=== PATIENT | male | born 1965 | race Caucasian/White ===

== ENCOUNTER → 2019-08-07 | Outpatient (CLI) | payer BC | END | disposition home or self-care (01) | LOC: RAH 09:04 | PROVIDERS: ATTEND Family Medicine | DX: M50.222 Other cervical disc displacement at C5-C6 level (principal); M50.322 Other cervical disc degeneration at C5-C6 level | CPT/HCPCS: 72141 ==

== ENCOUNTER → 2020-08-13 | Outpatient (CLI) | payer BC | END | disposition home or self-care (01) | LOC: SHCH 13:42 | PROVIDERS: ATTEND Internal Medicine Cardiovascular Disease | DX: I65.23 Occlusion and stenosis of bilateral carotid arteries (principal); I25.10 Atherosclerotic heart disease of native coronary artery without angina pectoris | CPT/HCPCS: 93880 ==

== ENCOUNTER → 2020-12-30 | Outpatient (CLI) | payer BC, SELFPAY | END | disposition home or self-care (01) | LOC: RAH 14:05 | PROVIDERS: ATTEND Orthopaedic Surgery | DX: M25.462 Effusion, left knee (principal); M22.42 Chondromalacia patellae, left knee; M17.12 Unilateral primary osteoarthritis, left knee; M25.552 Pain in left hip; M25.551 Pain in right hip | CPT/HCPCS: 72195; 73721 ==

== ENCOUNTER → 2021-02-23 | Outpatient (CLI) | payer BC | END | disposition home or self-care (01) | LOC: RAH 14:15 | PROVIDERS: ATTEND Orthopaedic Surgery | DX: S83.241A Other tear of medial meniscus, current injury, right knee, initial encounter (principal); X58.XXXA Exposure to other specified factors, initial encounter; Y93.89 Activity, other specified; Y92.89 Other specified places as the place of occurrence of the external cause; Y99.8 Other external cause status | CPT/HCPCS: 73721 ==

== ENCOUNTER → 2021-10-20 | Outpatient (CLI) | payer BC | END | disposition home or self-care (01) | LOC: SHCH 10:26 | PROVIDERS: ATTEND Internal Medicine Cardiovascular Disease | DX: G45.9 Transient cerebral ischemic attack, unspecified (principal); H53.2 Diplopia | CPT/HCPCS: 93880 ==

== ENCOUNTER → 2023-08-01 | Outpatient (CLI) | payer BC | END | disposition home or self-care (01) | LOC: SHCH 14:57 | PROVIDERS: ATTEND Internal Medicine Cardiovascular Disease | DX: I48.0 Paroxysmal atrial fibrillation (principal) | CPT/HCPCS: 93306 ==

== ENCOUNTER → 2024-03-28 | Outpatient (CLI) | payer BC | END | disposition home or self-care (01) | LOC: RAH 08:49 | PROVIDERS: ATTEND Internal Medicine Gastroenterology | DX: K80.20 Calculus of gallbladder without cholecystitis without obstruction (principal); K76.0 Fatty (change of) liver, not elsewhere classified; R16.0 Hepatomegaly, not elsewhere classified; R10.9 Unspecified abdominal pain; R11.2 Nausea with vomiting, unspecified | CPT/HCPCS: 74240; 76700 ==

== ENCOUNTER → 2024-09-15 | Outpatient (CLI) | payer BC ==
[2024-09-15 13:13] LABS: CHOLESTEROL 98 mg/dL (<200); HDL CHOLESTEROL 58 mg/dL (29-71); LDL DIRECT 26 mg/dL (0-99); TRIGLYCERIDES 112 mg/dL (30-200)
== END | disposition home or self-care (01) ==
LOC: LAB 08:43
PROVIDERS: ATTEND Internal Medicine Cardiovascular Disease
DX: E78.5 Hyperlipidemia, unspecified (principal)
CPT/HCPCS: 36415; 80061

== ENCOUNTER 2025-10-16 15:37 | Emergency (ER) | payer BC ==
[~2025-10-16] VITALS: Ht 182.9 cm; Wt 95.3 kg
--- NOTE | 2025-10-16 16:04 | ERN ---
ED Note History of Present Illness Stated Complaint: WEAKNESS Chief Complaint: Weakness Time Seen by MD: 15:44 Time Seen by Midlevel: 15:44 Dictation: Mr. Howard is a 60-year-old gentleman with history of atrial fibrillation, chronic anticoagulation (Xarelto), CVA, hyperlipidemia, hypertension, and GERD who presented to the emergency department this afternoon for evaluation of general body weakness. Patient reports fatigue, general weakness, and intermittent dizziness since last night. He states I feel drained . He feels like he may be in AFib. He went to [facility] so they could review his loop recorder but they had left for the day so he came to the emergency department. He states he is status post ablation on 09/10 (Dr. Stiles). He denies fever, chills, shortness of breath, cough, chest pain, palpitations, edema, abdominal pain, nausea, vomiting, hematemesis, constipation, diarrhea, melena, hematochezia, dysuria, headache, dizziness, or focal weakness/paresthesia Allergies: Uncoded Allergies: STATINS (Allergy, Unknown, 09/08/25) Home Meds Active Scripts Sucralfate (Sucralfate) 1 Gram Tablet, 1 TAB PO QID for 15 Days, #60 TAB 0 Refills MUST DISSOLVE IN WATER DO NOT CRUSH Prov:ABBY STILES MD 09/10/25 Reported Medications Tirzepatide (Mounjaro) 2.5 Mg/0.5 Ml Pen.injctr, 2.5 MG SQ Sundays09/08/25 Vitamin E Mixed (Vitamin E) 400 Unit Capsule, 400 UNIT PO DAILY, CAP 09/08/25 [Mvi] No Conflict Check, 1 TAB PO DAILY 09/08/25 [Coq10] No Conflict Check, 1 TAB PO DAILY 09/08/25 [Vitamin B12] No Conflict Check, 1000 MCG SL DAILY 09/08/25 Cholecalciferol (Vitamin D3) (Vitamin D3) 50 Mcg (2000 Unit) Tab.chew, 50 MCG PO DAILY, TAB.CHEW 09/08/25 Zinc Sulfate (Zinc) 50 Mg Zinc (220 Mg) Tablet, 50 MG PO DAILY, TAB 09/08/25 Niacin (Niacin) 500 Mg Capsule.er, 500 MG PO DAILY, CAP 09/08/25 Ondansetron (Ondansetron Odt) 4 Mg Tab.rapdis, 4 MG PO AD PRN for NAUSEA/VOMITING, TAB 09/08/25 Losartan Potassium (Losartan Potassium) 100 Mg Tablet, 100 MG PO HS, TAB 09/08/25 Evolocumab (Repatha Syringe) 140 Mg/Ml Syringe, 140 MG SQ G0YSTDA, SYRINGE 09/08/25 Icosapent Ethyl (Icosapent Ethyl) 1 Gram Capsule, 2 GM PO BID, CAP 09/08/25 Clopidogrel Bisulfate (Clopidogrel) 75 Mg Tablet, 75 MG PO DAILY, TAB 09/08/25 Gemfibrozil (Gemfibrozil) 600 Mg Tablet, 600 MG PO BID, TAB 09/08/25 Omeprazole (Omeprazole) 40 Mg Capsule.dr, 40 MG PO AM, CAP 09/08/25 Rivaroxaban (Xarelto) 20 Mg Tablet, 20 MG PO AM, TAB 09/08/25 Metoprolol Succinate (Metoprolol Succinate) 25 Mg Tab.er.24h, 25 MG PO BID, TAB 09/08/25 Past Medical History Past Medical History: A-Fib, CVA, High Cholesterol, Hypertension Surgical History: Other Surgical History Other: LOOP RECORDER Social History: Lives with family RN Note Reviewed/Agreed w/PFSH: Yes Review of System Dictation REVIEW OF SYSTEMS: CONSTITUTIONAL: Patient denies fevers, chills, sweats and weight changes. Re ports fatigue and general weakness. States I feel drain . EYES: Patient denies any visual symptoms. EARS, NOSE, AND THROAT: No difficulties with hearing. No symptoms of rhinitis or sore throat. CARDIOVASCULAR: Patient denies chest pains, palpitations, orthopnea and paroxysmal nocturnal dyspnea. Denies rapid heart rate/tachycardia . States that he is status post ablation on 09/10. States he is concerned he may be in and out of atrial fibrillation. RESPIRATORY: No dyspnea on exertion, no wheezing or cough. GI: No nausea, vomiting, diarrhea, constipation, abdominal pain, hematochezia or melena. : No urinary hesitancy or dribbling. No nocturia or urinary frequency. No abnormal urethral discharge. MUSCULOSKELETAL: No myalgias or arthralgias. NEUROLOGIC: No chronic headaches, no seizures. Patient denies numbness, tingling or weakness. PSYCHIATRIC: Patient denies problems with mood disturbance. No problems with anxiety. ENDOCRINE: No excessive urination or excessive thirst. DERMATOLOGIC: Patient denies any rashes or skin changes. Initial Vital Sign VS Vital Signs Date Time Temp Pulse Resp B/P (MAP) Pulse Ox O2 Delivery O2 Flow Rate FiO2 10/16/25 15:44 71 18 106/69 98 Room Air 0 Physical Exam Dictation Vital signs: Reviewed. Afebrile Constitutional: No acute distress. Non-toxic appearing. Accompanied by significant other Head/Face: Normocephalic, atraumatic. Eyes: Periorbital areas with no swelling, redness, or edema. Lids and lashes are normal. Conjunctival injection is absent. Sclera anicteric. Pupils equal, round, reactive to light. ENT: Pinnas intact and no signs of trauma or erythema. Ear canals clear and no discharge. TMs no erythema. No nasal discharge or bleeding noted. Oropharynx with no exudate, redness, swelling, masses, exudates, or evidence of obstruction. Uvula midline. Mucous membranes moist. Neck: Trachea midline, no masses palpated, and no cervical lymphadenopathy. No swelling. Supple, full range of motion. Chest/Axilla: No tenderness, no crepitus, no paradoxical movement, no retract ions. Cardiovascular: Regular rate, regular rhythm, no murmur, no gallops. Symmetric pulses. No peripheral edema. Twelve lead EKG reflects a sinus rhythm without ST-elevation or depression. Denies chest pain Respiratory: Respirations even and unlabored. Lung sounds clear; no wheezes, rales or rhonchi. Room air SpO2 97% Gastrointestinal: Inspection is normal. No distention is appreciated. Bowel sounds are normal. No mass or organomegaly . There is no tenderness. No rebound. No rigidity. No voluntary or involuntary guarding. No Cason's sign. Neurological: Normal speech, gross motor function intact, gross sensory function intact. No focal weakness/Paresthesia. Musculoskeletal/Extremities: All extremities have full range of motion, no pain or tenderness on palpation. Symmetric pulses. Integumentary: Intact. Skin is normal color, warm and dry. Cap refill less than 3 seconds. Results (Laboratory/Radiology) Laboratory/Radiology Laboratory Tests Test 10/16/25 15:59 White Blood Count 8.5 K/uL (4.8-10.8) Red Blood Count 3.85 MIL/uL (4.50-6.20) L Hemoglobin 12.3 g/dL (14.0-18.0) L Hematocrit 37.2 % (42-54) L Mean Corpuscular Volume 96.6 fL (79-99) Mean Corpuscular Hemoglobin 31.9 pg (27.0-33.0) Mean Corpuscular Hemoglobin Concent 33.1 g/dL (32.0-36.0) Red Cell Distribution Width 13.8 % (11.0-15.5) Platelet Count 363 K/uL (130-400) Mean Platelet Volume 9.2 fL (7.5-10.5) Immature Granulocyte % (Auto) 0.5 % (0-1) Neutrophils (%) (Auto) 55.6 % (40.0-77.0) Lymphocytes (%) (Auto) 29.2 % (21.0-51.0) Monocytes (%) (Auto) 10.3 % (3.0-13.0) Eosinophils (%) (Auto) 3.8 % (0.0-8.0) Basophils (%) (Auto) 0.6 % (0.0-5.0) Neutrophils # (Auto) 4.7 K/uL (1.8-7.7) Lymphocytes # (Auto) 2.5 K/uL (1.0-4.8) Monocytes # (Auto) 0.9 K/uL (0.1-1.0) Eosinophils # (Auto) 0.32 K/uL (0.00-0.70) Basophils # (Auto) 0.05 K/uL (0.00-0.20) Absolute Immature Granulocyte (auto 0.04 K/uL (0-1) Nucleated Red Blood Cells 0.0 % (0.0-0.19) Sodium Level 143 mmol/L (136-145) Potassium Level 4.4 mmol/L (3.5-5.1) Chloride Level 105 mmol/L (101-111) Carbon Dioxide Level 31 mmol/L (21-32) Blood Urea Nitrogen 13 mg/dL (7-18) Creatinine 1.3 mg/dL (0.5-1.3) Glomerular Filtration Rate Calc 63 mL/min (>90) Random Glucose 101 mg/dL (70-105) Total Calcium 9.5 mg/dL (8.5-10.1) Magnesium Level 2.10 mg/dL (1.80-2.40) Troponin I High Sensitivity 10 ng/L (4-75) B-Type Natriuretic Peptide 97 pg/mL (0-100) Labs Reviewed?: Yes EKG Comment: EKG Interpretation: Time Reviewed: 1345 Ventricular rate: 67 bpm NH Interval: 234 ms QRS duration: [address] segment elevation or depression. Clinical impression: Sinus rhythm EKG Reviewed and interpreted by Dr. Paris Heredia ED Course ED Course Orders Procedure Category Date Status Time 12 Lead Ekg Tracing- EKG 10/16/25 Logged Technical 15:49 Cbc With Differential LAB 10/16/25 Complete 15:49 Basic Metabolic Panel LAB 10/16/25 Complete 15:49 Troponin I High LAB 10/16/25 Complete Sensitivity 15:49 B-Type Natriuretic LAB 10/16/25 Complete Peptide 15:49 Magnesium LAB 10/16/25 Complete 15:49 Vital Signs Date Time Temp Pulse Resp B/P (MAP) Pulse Ox O2 Delivery O2 Flow Rate FiO2 10/16/25 15:44 71 18 106/69 98 Room Air 0 Uneventful ED course. Vital signs are stable; afebrile and normotensive with room air SpO2 98%. Twelve lead EKG reflects a sinus rhythm without ST- elevation. Laboratory findings as noted below. No elevation of WBCs. H&H are 12.3/37.2. GFR 63. No electrolyte derangement. Normal magnesium. Troponin and BNP are not elevated. There was evaluated for fatigue and lightheadedness. EKG shows a sinus rhythm, labs reassuring, and no evidence of acute cardiopulmonary pathology. Stable for discharge with cardiology follow up and strict return precautions reviewed. Patient verbalizes understanding. Medical Decision Making MDM MDM: Differential diagnosis: Atrial fibrillation with rapid ventricular response, dehydration, anemia, medication related affects (beta-belkys), post ablation symptoms, ACS, CHF Rationale: Tests considered and ordered secondary to shared decision making include: EKG lab Previous outside records reviewed: Old ER visits. Risk of complication and/or morbidity or mortality of patient management: None Medications-Per medication reconciliation Need for hospitalization: Patient does not meet criteria for hospitalization. Need for emergency major/minor surgery: No There are no social concerns with this patient. Prescription drug management: Continue home medications. Prescriptions will include symptomatic care Patient's prior external medical records from other ER visits were reviewed by me as indicated. Prior testing and results from previous visits were reviewed. Prior tests were taken into account with medical decision making and resource utilization, independent historian/historians were used to obtain complete medical history. I independently interpreted the test that were performed, results were reviewed by me and considered findings on radiology if ordered. Medical management and examination interpretation discussions were had by me with other qualified healthcare professionals as indicated for the patient's care. DX & DISP Disposition: Discharge Departure Impression: Primary Impression: Fatigue/lightheadedness Additional Impressions: History fibrillation, status post ablation, Electrocardiogram showing normal sinus rhythm, Normal sinus rhythm Condition: Stable Additional Instructions: Your EKG: Normal sinus rhythm. Laboratory studies: Troponin negative, BNP normal, electrolytes and magnesium with no normal limits, hemoglobin is stable, and kidney function is stable. There was no evidence of atrial fibrillation, heart attack, heart failure, electrolyte abnormality, or dangerous arrhythmia at this time. Continue all home medications as prescribed including your Xarelto and metoprolol. Resume normal activities as tolerated. Change positions slowly (sit up and stand gradually, maintain good hydration. Avoid excessive caffeine or alcohol. Contact your lawyer criminal in 1-2 days. Informed them of today's symptoms and ED visit. They may review data from your loop recorder. Keep all scheduled cardiology appointments, fatigue or lightheadedness may occur after a blation or as a medication effect. Symptoms should improve with rest and hydration. Loop recorder provides ongoing rhythm monitoring. Return to the emergency department immediately if you have: Chest pain/pressure, shortness of breath, fainting/near fainting, rapid/irregular heartbeat, new/worsening dizziness. Stroke symptoms (weakness, numbness, speech, or vision changes). An y bleeding or black stools while on Xarelto. Your evaluation today was reassuring. No acute cardiac problem was identified. Outpatient Cardiology follow up is appropriate. Referrals: ROB AVILA MD (PCP) JO CALVERT MD Time of Disposition: 16:54 IBIS DAVID Oct 16, 2025 16:04
[2025-10-16 16:07] LABS: IMMATURE GRANULOCYTE ABSOLUTE 0.04 K/uL (0-1); NUCLEATED RED BLOOD CELLS 0.0 % (0.0-0.19); PLATELET COUNT (AUTO) 363 K/uL (130-400); RED BLOOD CELL COUNT(AUTO) 3.85 MIL/uL (4.50-6.20); RED CELL DISTRIBUTION WIDTH 13.8 % (11.0-15.5); WHITE BLOOD COUNT (AUTO) 8.5 K/uL (4.8-10.8)
[2025-10-16 16:17] LABS: CREATININE 1.3 mg/dL (0.5-1.3); GLOMERULAR FILTR. RATE CALC 63.0 mL/min (>90); GLUCOSE,RANDOM 101.0 mg/dL (70-105); SODIUM SERUM 143.0 mmol/L (136-145); UREA NITROGEN, BLOOD 13.0 mg/dL (7-18)
[2025-10-16 17:05] VITALS: BP 106/69; PULSE 71; RESP 18; O2SAT 98
--- NOTE | 2025-10-16 17:05 | NUR ---
ASSUMED CARE OF PATIENT, RECEIVED REPORT FROM STAS CHOI RN.
--- NOTE | 2025-10-17 13:07 | EKG ---
[facility] Test Date: 2025-10-16 Test Time: 15:43:21 Pat Name: MARILEE AROCS Department: ED Room: Gender: Rag Room Supervisor: [id number] : 1965 Requested By: IBIS DAVID Order Number: [id number] Reading MD: Cortez Campbell Measurements Intervals [place] Rate: 67 P: 73 IN: 234 QRS: 46 QRSD: 98 T: 62 QT: 384 QTc: 405 Interpretive Statements Sinus rhythm Prolonged IN interval Compared to ECG 09/08/2025 11:39:05 No significant changes Electronically Signed On 10-18-2025 09:25:49 REAL ESTATE ACQUISITION ANALYST by Cortez Campbell Please click the below link to view image of tracing.
== END 2025-10-16 17:20 | disposition home or self-care (01) ==
LOC: EDH 15:37
DX: R42 Dizziness and giddiness (principal); R53.83 Other fatigue; I48.91 Unspecified atrial fibrillation; E78.00 Pure hypercholesterolemia, unspecified; I10 Essential (primary) hypertension; Z79.02 Long term (current) use of antithrombotics/antiplatelets; Z79.899 Other long term (current) drug therapy; Z86.73 Personal history of transient ischemic attack (TIA), and cerebral infarction without residual deficits; Z88.8 Allergy status to other drugs, medicaments and biological substances; Z98.890 Other specified postprocedural states
CPT/HCPCS: 36415; 80048; 83735; 83880; 84484; 85025; 93005; 99284

== ENCOUNTER 2025-10-22 06:03 | Day surgery (SDC) | payer BC ==
[2025-10-20 13:09] VITALS: BP 110/72; PULSE 72; RESP 18; TEMP 98.4
[2025-10-20 13:14] LABS: IMMATURE GRANULOCYTE ABSOLUTE 0.03 K/uL (0-1); NUCLEATED RED BLOOD CELLS 0.0 % (0.0-0.19); PLATELET COUNT (AUTO) 508 K/uL (130-400); RED BLOOD CELL COUNT(AUTO) 4.19 MIL/uL (4.50-6.20); RED CELL DISTRIBUTION WIDTH 14.2 % (11.0-15.5); WHITE BLOOD COUNT (AUTO) 7.4 K/uL (4.8-10.8)
[2025-10-20 13:22] LABS: INR 1.25 (0.85-1.15)
[2025-10-20 13:23] LABS: CREATININE 1.2 mg/dL (0.5-1.3); GLOMERULAR FILTR. RATE CALC 69.0 mL/min (>90); GLUCOSE,RANDOM 93.0 mg/dL (70-105); SODIUM SERUM 138.0 mmol/L (136-145); UREA NITROGEN, BLOOD 14.0 mg/dL (7-18)
--- NOTE | 2025-10-20 13:24 | EKG ---
[facility] Test Date: 2025-10-20 Test Time: 12:59:31 Pat Name: MARILEE ARCOS Department: [facility] Room: Gender: Clean Energy Policy Analyst: [id number] : 1965 Requested By: ABBY STILES Order Number: [id number] Reading MD: Can Martinez Measurements Intervals [place] Rate: 72 P: 56 OR: 231 QRS: 2 QRSD: 97 T: 37 QT: 373 QTc: 408 Interpretive Statements Sinus rhythm Prolonged OR interval Compared to ECG 10/16/2025 15:43:21 No significant changes Electronically Signed On 10-20-2025 23:53:33 [address] OPERATIONS CLERK by Can Martinez Please click the below link to view image of tracing.
[~2025-10-22] VITALS: Ht 182.9 cm; Wt 99.3 kg
[~2025-10-22 06:03] MED LIST: BACITRACIN 1 EACH PACKET TP ONE; CHOL200079 PO; CLOP75TA32 PO; COQ10 PO; EVOL140S2 SQ; GEMF600T89 PO; ICOS1CAP2 PO; IODIXANOL 320 MG/ML 100 ML VIAL ONE; LIDOCAINE HCL 1% MDV 50ML VIAL ONE; LOSA100T59 PO; METO-408 PO; MIDAZOLAM HCL 1 MG/ML 2ML VIAL ONE; MVI PO; NIAC500C9 PO; OMEP40CA21 PO; ONDA-243 PO; RIVA20TA PO; SODIUM BICARB 50MEQ 50ML VIAL 50 ML ONE; TIRZ2.5P SQ; VITA-348 PO; VITAMIN B12 SL; ZINC220T4 PO
[2025-10-22 06:16] VITALS: BP 115/75; PULSE 77; RESP 18; TEMP 98
[2025-10-22] MEDS: 0.9%NACL 1000ML 1,000 ML IV SCH (06:40)
[2025-10-22] MEDS ORDERED: LIDOCAINE HCL 400MG/20ML VIAL ONE (07:33)
[2025-10-22 08:55] VITALS: BP 118/73; PULSE 76; RESP 16; TEMP 96.9
--- NOTE | 2025-10-22 08:55 | NUR ---
DRESSING: DRESSING TO MID CHEST AREA DRY/INTACT WITH NO ACTIVE BLEEDING PRESENT. NO REDNESS/SWELLING NOTED TO SURROUNDING AREA.
[2025-10-22 09:10] VITALS: BP 119/66; PULSE 73; RESP 16; TEMP 96.9
--- NOTE | 2025-10-22 09:10 | NUR ---
DRESSING: DRESSING TO MID CHEST AREA REMAINED DRY/INTACT WITH NOACTIVE BLEEDING NOTED. NO REDNESS/SWELLING NOTED TO SURROUNDING AREA.
== END 2025-10-22 09:10 | disposition home or self-care (01) ==
LOC: DAH 06:03
PROVIDERS: ATTEND Internal Medicine Cardiovascular Disease
DX: I48.19 Other persistent atrial fibrillation (principal); I44.0 Atrioventricular block, first degree; I25.10 Atherosclerotic heart disease of native coronary artery without angina pectoris; G47.33 Obstructive sleep apnea (adult) (pediatric); E78.5 Hyperlipidemia, unspecified; M50.13 Cervical disc disorder with radiculopathy, cervicothoracic region; Z99.89 Dependence on other enabling machines and devices; Z86.73 Personal history of transient ischemic attack (TIA), and cerebral infarction without residual deficits; Z98.890 Other specified postprocedural states; Z79.01 Long term (current) use of anticoagulants; Z79.899 Other long term (current) drug therapy
CPT/HCPCS: 80048; 85025; 85610; 85730; 36415; 93005; 33285; 82948 ×2; J3010; J0690; J0665; J3490 ×3; J2250 ×3; Q9967; A4649; C1764; J7030; A4215; A4221; A4663; A4216; A4606; A4223 ×3; 33286